=== PATIENT | female | born 1930 | race Caucasian/White ===

== ENCOUNTER 2017-03-01 15:09 | Inpatient (IN) | payer OTHER, MEDICARE ==
[~2017-03-01] VITALS: Ht 147.3 cm; Wt 42.9 kg
[~2017-03-01 15:09] MED LIST: ALPRAZOLAM1 MG PO; CIPRO500 MG PO; DARVOCET-N 1001 EAC1 PO; GABAPENTIN100 MG PO; LIPITOR; LORAZEPAM; MIRTAZAPINE15 MG PO; SENNA8.6 MG PO; TRAZODONE; VALTREX1000 MG PO; XANAX
[2017-03-01 16:31] LABS: EOSINOPHIL (%) 0.2 % (0-5); HEMATOCRIT 34.8 % (36.0-46.0); IMMATURE GRANULOCYTE (%) 1.6 % (0.0-0.7); IMMATURE GRANULOCYTE COUNT 0.2 K/uL; LYMPHOCYTE COUNT 1.3 K/uL (1.0-2.8); MCH 29.2 PG (29.0-34.0); MCHC 30.7 G/DL (30.0-36.0); MCV 95.1 FL (83-99); MONOCYTE (%) 5.6 % (3-12); MONOCYTE COUNT 0.7 K/uL (0-0.8); NEUTROPHIL (%) 81.8 % (45-76); RBC DIS.WIDTH-CV 16.9 % (11.8-14.6); RBC DIS.WIDTH-SD 58.6 % (39-53); RED BLOOD COUNT 3.66 M/uL (3.80-5.20); WHITE BLOOD COUNT 12.2 K/uL (4.1-10.2)
[2017-03-01 16:51] LABS: ADD MIUA? YES; BILIRUBIN NEGATIVE; BLOOD NEGATIVE; COLOR YELLOW ((YELLOW)); GLUCOSE (STRIP) NEGATIVE; KETONES 20; LEUKOCYTES NEGATIVE; NITRITE NEGATIVE; PROTEIN (STRIP) 30; SPECIFIC GRAVITY 1.024 (1.000-1.030)
[2017-03-01 16:58] LABS: BACTERIA RARE /HPF; EPITHELIAL CELLS RARE /HPF; HYALINE CASTS 0-5 /LPF; MUCUS TRACE /LPF; RED BLOOD CELLS NONE SEEN /HPF (0-5); UCUL ADDED? NO; WHITE BLOOD CELLS 0-5 /HPF (0-5)
[2017-03-01 17:17] LABS: INTER. NORMALIZED RATIO 1.1; PROTHROMBIN TIME 11.7 (9.2-11.2); PTT 27.1 (25-32)
[2017-03-01 17:19] LABS: PLATELET CLUMPS PRESENT - PLATELET COUNT APPEARS ADQ.; PLATELET COUNT UNABLE TO REPORT K/uL (156-360)
[2017-03-01 17:21] LABS: CHLORIDE 123 mEq/L (99-109); POTASSIUM 3.6 mEq/L (3.7-5.4)
[2017-03-01 17:22] LABS: MAGNESIUM 2.5 mg/dL (1.3-2.7)
[2017-03-01 17:23] LABS: GLUCOSE 83 mg/dL (70-99)
[2017-03-01 17:24] LABS: ANION GAP 15 MEQ/L (2-14)
[2017-03-01 17:27] LABS: GFR ESTIMATE (CALCULATED) > 59 mL/min/
[2017-03-01 17:28] LABS: SODIUM 161 mEq/L (136-147); UREA NITROGEN (BUN) 30 mg/dL (9-23)
[2017-03-01 17:29] LABS: CREATINE KINASE 70 IU/L (1-294)
[2017-03-01 17:31] LABS: TROP-I INTERPRETATION NEGATIVE; TROPONIN-I < 0.01 ng/mL (0.0-0.30)
[2017-03-01] MEDS ORDERED: LATANOPROST2.5 ML BOTH EYES (18:07)
[2017-03-01] MEDS ORDERED: ALPRAZOLAM0.5 MG PO (18:07)
[2017-03-01 21:45] LABS: CHLORIDE 124 mEq/L (99-109); POTASSIUM 3.3 mEq/L (3.7-5.4); SODIUM 160 mEq/L (136-147)
[2017-03-01 21:46] LABS: GLUCOSE 78 mg/dL (70-99)
[2017-03-01 21:48] LABS: ANION GAP 13 MEQ/L (2-14)
[2017-03-01 21:50] LABS: GFR ESTIMATE (CALCULATED) > 59 mL/min/
[2017-03-01 21:51] LABS: UREA NITROGEN (BUN) 28 mg/dL (9-23)
[2017-03-02 01:52] VITALS: BP 138/65
[2017-03-02 03:08] LABS: HEMATOCRIT 34.2 % (36.0-46.0); MCH 28.9 PG (29.0-34.0); MCHC 30.1 G/DL (30.0-36.0); MCV 95.8 FL (83-99); RBC DIS.WIDTH-CV 16.9 % (11.8-14.6); RBC DIS.WIDTH-SD 59.4 % (39-53); RED BLOOD COUNT 3.57 M/uL (3.80-5.20); WHITE BLOOD COUNT 11.5 K/uL (4.1-10.2)
[2017-03-02 03:11] LABS: PLATELET COUNT 414 K/uL (156-360)
[2017-03-02 03:23] LABS: CHLORIDE 126 mEq/L (99-109); POTASSIUM 3.6 mEq/L (3.7-5.4); SODIUM 160 mEq/L (136-147)
[2017-03-02 03:25] LABS: GLUCOSE 78 mg/dL (70-99)
[2017-03-02 03:27] LABS: ANION GAP 13 MEQ/L (2-14)
[2017-03-02 03:29] LABS: GFR ESTIMATE (CALCULATED) > 59 mL/min/
[2017-03-02 03:30] LABS: UREA NITROGEN (BUN) 27 mg/dL (9-23)
[2017-03-02 04:25] VITALS: BP 115/56
[2017-03-02 07:39] VITALS: BP 116/79
[2017-03-02 08:57] LABS: ANION GAP 10 MEQ/L (2-14); CHLORIDE 124 MEQ/L (99-109); GFR ESTIMATE (CALCULATED) > 59 mL/min/; GLUCOSE 86 mg/dL (70-99); POTASSIUM 3.3 MEQ/L (3.7-5.4); SAMPLE HEMOLYSIS CHECK 0; SAMPLE ICTERIC CHECK 0; SAMPLE LIPEMIA CHECK 0; SODIUM 158 MEQ/L (136-147); UREA NITROGEN (BUN) 25 mg/dL (9-23)
[2017-03-02 11:17] VITALS: BP 109/53
[2017-03-02 15:36] VITALS: BP 112/59
[2017-03-02 19:00] VITALS: BP 109/55
[2017-03-03] VITALS (7 sets, daily range): BP systolic 94–149; BP diastolic 47–60
[2017-03-03 09:39] LABS: POTASSIUM 3.1 mEq/L (3.7-5.4)
[2017-03-03 09:42] LABS: ANION GAP 7 MEQ/L (2-14)
[2017-03-03 09:45] LABS: GFR ESTIMATE (CALCULATED) > 59 mL/min/; GLUCOSE 114 mg/dL (70-99); SODIUM 142 mEq/L (136-147)
[2017-03-03 09:46] LABS: CHLORIDE 110 mEq/L (99-109); UREA NITROGEN (BUN) 18 mg/dL (9-23)
[2017-03-04 04:49] VITALS: BP 95/53
[2017-03-04 06:36] LABS: ANION GAP 6 MEQ/L (2-14); CHLORIDE 119 MEQ/L (99-109); GFR ESTIMATE (CALCULATED) > 59 mL/min/; GLUCOSE 93 mg/dL (70-99); SAMPLE HEMOLYSIS CHECK 0; SAMPLE ICTERIC CHECK 0; SAMPLE LIPEMIA CHECK 0; SODIUM 145 MEQ/L (136-147); UREA NITROGEN (BUN) 14 mg/dL (9-23)
[2017-03-04 06:37] LABS: POTASSIUM 3.8 MEQ/L (3.7-5.4)
[2017-03-04 07:35] VITALS: BP 102/55
[2017-03-04 11:31] VITALS: BP 114/58
[2017-03-04 15:32] VITALS: BP 136/72
[2017-03-04 20:49] VITALS: BP 123/59
[2017-03-04 22:49] LABS: C DIFF TOXIN POSITIVE (NEGATIVE)
[2017-03-04 22:51] LABS: PROBE CHECK PASS
[2017-03-05 00:10] VITALS: BP 127/63
[2017-03-05 03:07] VITALS: BP 113/57
[2017-03-05 07:47] VITALS: BP 107/58
[2017-03-05 08:06] LABS: ANION GAP 9 MEQ/L (2-14); CHLORIDE 116 MEQ/L (99-109); GFR ESTIMATE (CALCULATED) > 59 mL/min/; GLUCOSE 80 mg/dL (70-99); POTASSIUM 3.7 MEQ/L (3.7-5.4); SAMPLE HEMOLYSIS CHECK 0; SAMPLE ICTERIC CHECK 0; SAMPLE LIPEMIA CHECK 0; SODIUM 148 MEQ/L (136-147); UREA NITROGEN (BUN) 15 mg/dL (9-23)
[2017-03-05 11:37] LABS: HEMATOCRIT 29.2 % (36.0-46.0); MCH 30.3 PG (29.0-34.0); MCHC 32.5 G/DL (30.0-36.0); MEAN PLAT.VOLUME 11.7 uM^3 (9.5-12.4); PLATELET COUNT 337 K/uL (156-360); RBC DIS.WIDTH-CV 16.9 % (11.8-14.6); RBC DIS.WIDTH-SD 57.7 % (39-53); RED BLOOD COUNT 3.14 M/uL (3.80-5.20); WHITE BLOOD COUNT 8.2 K/uL (4.1-10.2)
[2017-03-05 11:49] VITALS: BP 106/56
[2017-03-05 16:54] LABS: CHLORIDE 115 mEq/L (99-109); POTASSIUM 3.6 mEq/L (3.7-5.4); SODIUM 144 mEq/L (136-147)
[2017-03-05 16:57] LABS: ANION GAP 6 MEQ/L (2-14)
[2017-03-05 16:59] LABS: GFR ESTIMATE (CALCULATED) > 59 mL/min/; GLUCOSE 114 mg/dL (70-99)
[2017-03-05 17:01] LABS: UREA NITROGEN (BUN) 15 mg/dL (9-23)
[2017-03-05 17:14] VITALS: BP 126/58
[2017-03-05 23:49] VITALS: BP 122/60
[2017-03-06 06:43] LABS: EOSINOPHIL (%) 0.5 % (0-5); HEMATOCRIT 28.4 % (36.0-46.0); IMMATURE GRANULOCYTE (%) 1.7 % (0.0-0.7); IMMATURE GRANULOCYTE COUNT 0.1 K/uL; INSTRUMENT ABS NEUTROPHIL CT 5.5 K/uL; LYMPHOCYTE COUNT 1.4 K/uL (1.0-2.8); MCH 29.4 PG (29.0-34.0); MCV 91.9 FL (83-99); MEAN PLAT.VOLUME 11.9 uM^3 (9.5-12.4); MONOCYTE (%) 7.1 % (3-12); MONOCYTE COUNT 0.6 K/uL (0-0.8); NEUTROPHIL (%) 71.9 % (45-76); NEUTROPHIL COUNT 5.5 K/uL (1.8-6.4); PLATELET COUNT 302 K/uL (156-360); RBC DIS.WIDTH-CV 16.9 % (11.8-14.6); RBC DIS.WIDTH-SD 56.1 % (39-53); RED BLOOD COUNT 3.09 M/uL (3.80-5.20); WHITE BLOOD COUNT 7.7 K/uL (4.1-10.2)
[2017-03-06 07:35] LABS: ANION GAP 8 MEQ/L (2-14); CHLORIDE 112 MEQ/L (99-109); GFR ESTIMATE (CALCULATED) > 59 mL/min/; SAMPLE HEMOLYSIS CHECK 2; SAMPLE ICTERIC CHECK 0; SAMPLE LIPEMIA CHECK 0; SODIUM 143 MEQ/L (136-147); UREA NITROGEN (BUN) 12 mg/dL (9-23)
[2017-03-06 07:39] LABS: GLUCOSE 76 mg/dL (70-99)
[2017-03-06 12:32] LABS: POINT-OF-CARE METER ID UU14162508
[2017-03-06 16:00] VITALS: BP 143/68
[2017-03-06 18:48] LABS: ADD MIUA? NO; BILIRUBIN NEGATIVE; BLOOD NEGATIVE; COLOR YELLOW ((YELLOW)); GLUCOSE (STRIP) NEGATIVE; KETONES NEGATIVE; LEUKOCYTES NEGATIVE; NITRITE NEGATIVE; PROTEIN (STRIP) NEGATIVE; SPECIFIC GRAVITY 1.012 (1.000-1.030); UCUL ADDED? NO; UROBILINOGEN 0.2 MG/DL (0.2-1.0)
[2017-03-06 23:29] VITALS: BP 144/70
[2017-03-07 08:34] VITALS: BP 138/74
[2017-03-07 15:39] VITALS: BP 128/78
[2017-03-08 00:05] VITALS: BP 130/60
[2017-03-08 08:07] VITALS: BP 132/65
[2017-03-08] MEDS ORDERED: METRONIDAZOLE500 MG PO (10:55)
== END 2017-03-08 13:26 | disposition home health service (06) | DRG 371 ==
LOC: EME 15:09 → 2EAST 20:25 → EDOF 20:25 → 4EAST 20:25 → 2EAST 03-04 18:07
PROVIDERS: Emergency Medicine; Hospitalist; Internal Medicine; Physician Assistant
DX: A04.7 Enterocolitis due to Clostridium difficile (principal); E46 Unspecified protein-calorie malnutrition; E87.0 Hyperosmolality and hypernatremia; T76.01XA Adult neglect or abandonment, suspected, initial encounter; F02.80 Dementia in other diseases classified elsewhere, unspecified severity, without behavioral disturbance, psychotic disturbance, mood disturbance, and anxiety; R64 Cachexia; R13.10 Dysphagia, unspecified; E86.0 Dehydration; Z68.1 Body mass index [BMI] 19.9 or less, adult; R33.9 Retention of urine, unspecified; R32 Unspecified urinary incontinence; N32.3 Diverticulum of bladder; G30.9 Alzheimer's disease, unspecified; I70.90 Unspecified atherosclerosis; E43 Unspecified severe protein-calorie malnutrition
CPT/HCPCS: 70450; 71010; 74177; 80048; 80048 91; 81003; 82550; 82948; 83735; 84300; 84484; 85025; 85027; 85610; 85730; 87040; 87086; 87493; 92610 GN; 93005; 97530 GP; 99281; 99285; J1644; J3480; J7030; J7070; S0028; S0030

== ENCOUNTER 2017-10-23 14:51 | Inpatient (IN) | payer OTHER, MEDICARE ==
[2017-10-23] VITALS (7 sets, daily range): BP systolic 82–87; BP diastolic 30–49
[~2017-10-23] VITALS: Ht 154.9 cm; Wt 58.1 kg
[~2017-10-23 14:51] MED LIST changes: +ALPRAZOLAM0.25 M2 PO; +LATANOPROST2.5 ML BOTH EYES; +METRONIDAZOLE500 MG PO; -MIRTAZAPINE15 MG PO; +MIRTAZAPINE7.5 MG PO; +SENNA PLUS TAB1 EACH PO; -SENNA8.6 MG PO
[2017-10-23 15:53] LABS: HEMOGLOBIN 12.7 G/DL (11.9-15.5); MCH 31.1 PG (29.0-34.0); NRBC (%) 0.2 /100 WBC (0-0); PLATELET COUNT 345 K/uL (156-360); RBC DIS.WIDTH-CV 17.5 % (11.8-14.6); RBC DIS.WIDTH-SD 65.1 % (39-53); RED BLOOD COUNT 4.08 M/uL (3.80-5.20); WHITE BLOOD COUNT 28.6 K/uL (4.1-10.2)
[2017-10-23 16:01] LABS: INTER. NORMALIZED RATIO 1.2
[2017-10-23 16:02] LABS: BASE EXCESS -7.6 mEq/L (-3 to +3); BICARBONATE 21.7 mEq/L (22-26); CARBOXY HGB 2.1 % (0-5); COMMENTS - BLOOD GASES A+C+; DEVICE VENTILATOR; FI02 100 %; MECHANICAL RATE 12 resp/min; METHEMOGLOBIN 1.3 % (0-1.5); MODE AC-12; PCO2 61 mm Hg (35-45); PEEP 5 CM/H20; PO2 174 mm Hg (80-100); SITE RR; TIDAL VOLUME 300 ML; TOTAL RESP RATE 12 resp/min; pH 7.16 (7.35-7.45)
[2017-10-23 16:04] LABS: ALBUMIN 3.5 g/dL (3.2-4.8); CHLORIDE 134 mEq/L (99-109); POTASSIUM 3.3 mEq/L (3.7-5.4); PTT 26.9 SEC (25-37)
[2017-10-23 16:06] LABS: GLUCOSE 210 mg/dL (70-99); TOTAL PROTEIN 7.2 g/dL (6.4-8.3)
[2017-10-23 16:08] LABS: TOTAL BILIRUBIN 0.5 mg/dL (0.0-1.0)
[2017-10-23 16:10] LABS: ALKALINE PHOSPHATASE 143 IU/L (3-129); CREATININE 3.8 mg/dL (0.6-1.3); GFR ESTIMATE (CALCULATED) 12 mL/min/
[2017-10-23 16:11] LABS: AST (GOT) 39 IU/L (2-34)
[2017-10-23 16:13] LABS: ALT (GPT) 98 IU/L (3-49)
[2017-10-23 16:16] LABS: SODIUM 172 mEq/L (136-147); UREA NITROGEN (BUN) 127 mg/dL (9-23)
[2017-10-23 16:18] LABS: TROP-I INTERPRETATION NEGATIVE; TROPONIN-I 0.09 ng/mL (0.0-0.30)
[2017-10-23 16:23] LABS: APPEARANCE CLOUDY ((CLEAR)); BILIRUBIN NEGATIVE; BLOOD NEGATIVE; COLOR AMBER ((YELLOW)); GLUCOSE (STRIP) NEGATIVE; KETONES NEGATIVE; LEUKOCYTES NEGATIVE; NITRITE NEGATIVE; PROTEIN (STRIP) NEGATIVE; SPECIFIC GRAVITY 1.017 (1.000-1.030); UROBILINOGEN 0.2 MG/DL (0.2-1.0)
[2017-10-23 16:51] LABS: ABS NEUTROPHIL COUNT 26.7; ANISOCYTOSIS 1+; BAND NEUTROPHILS 56.5 % (0-8.0); BURR CELLS 1+; EOSINOPHIL ABS CT 0; GIANT PLATELETS 2+; LYMPHOCYTES 2.5 % (15.0-45.0); MACROCYTES 1+; METAMYELOCYTES 2.1 %; MONOCYTES 2.1 % (0-9.0); OVALOCYTES 1+; POIKILOCYTOSIS 1+; SEG.NEUTROPHILS 36.8 % (46.0-76.0); SPHEROCYTES 1+
[2017-10-23 16:57] LABS: MCV 100.5 FL (83-99); PLATELET CLUMPS PRESENT
[2017-10-23 16:57] LABS: EPITHELIAL CELLS 2+ /HPF; RED BLOOD CELLS 0-5 /HPF (0-5); WHITE BLOOD CELLS 0-5 /HPF (0-5)
[2017-10-23 16:58] LABS: BACTERIA 3+ /HPF; MUCUS 2+ /LPF; UCUL ADDED? YES
[2017-10-23] MEDS ORDERED: ARICEPT10 MG PO (17:37)
[2017-10-23] MEDS ORDERED: LEVOTHYROXINE75 MCG PO (17:39)
[2017-10-23] MEDS ORDERED: MIRALAX119 GM PO ×2 (17:39→17:44)
[2017-10-23] MEDS ORDERED: TRAZODONE HCL50 MG PO (17:41)
[2017-10-23] MEDS ORDERED: NYSTATIN60 GM TP (17:42)
[2017-10-23] MEDS ORDERED: TYLENOL REGULA325 MG PO (17:43)
[2017-10-23] MEDS ORDERED: DULCOLAX10 MG PR (17:43)
[2017-10-23] MEDS ORDERED: MILK OF MAGN PO (17:44)
[2017-10-23] MEDS ORDERED: ZOFRAN4 MG PO (17:45)
[2017-10-23 18:40] LABS: BASE EXCESS -9.2 mEq/L (-3 to +3); BICARBONATE 16.1 mEq/L (22-26); CARBOXY HGB 1.3 % (0-5); COMMENTS - BLOOD GASES C+; DEVICE VENT; FI02 100 %; MECHANICAL RATE 18 resp/min; METHEMOGLOBIN 1.6 % (0-1.5); MODE AC; PCO2 32 mm Hg (35-45); PO2 179 mm Hg (80-100); SITE RB; TIDAL VOLUME 400 ML; TOTAL RESP RATE 22 resp/min; pH 7.31 (7.35-7.45)
[2017-10-23 18:41] LABS: PEEP 5 CM/H20
[2017-10-23 23:40] LABS: CHLORIDE 140 mEq/L (99-109); POTASSIUM 3.3 mEq/L (3.7-5.4)
[2017-10-23 23:41] LABS: GLUCOSE 182 mg/dL (70-99)
[2017-10-23 23:49] LABS: CREATININE 3.1 mg/dL (0.6-1.3); GFR ESTIMATE (CALCULATED) 15 mL/min/
[2017-10-24] VITALS (43 sets, daily range): BP systolic 0–128; BP diastolic 0–71
[2017-10-24 00:01] LABS: SODIUM 166 mEq/L (136-147); UREA NITROGEN (BUN) 103 mg/dL (9-23)
[2017-10-24 00:17] LABS: BASE EXCESS -10.5 mEq/L (-3 to +3); BICARBONATE 14.4 mEq/L (22-26); CARBOXY HGB 0.8 % (0-5); METHEMOGLOBIN 1.7 % (0-1.5); PCO2 28 mm Hg (35-45); pH 7.32 (7.35-7.45)
[2017-10-24 00:18] LABS: COMMENTS - BLOOD GASES A+C+; DEVICE VENT; FI02 80 %; MECHANICAL RATE 16 resp/min; MODE AC; PO2 125 mm Hg (80-100); SITE RR; TOTAL RESP RATE 25 resp/min
[2017-10-24 00:19] LABS: PEEP 5 CM/H20; TIDAL VOLUME 400 ML
[2017-10-24 05:15] LABS: BASE EXCESS -9.1 mEq/L (-3 to +3); BICARBONATE 15.5 mEq/L (22-26); COMMENTS - BLOOD GASES C+; DEVICE VENT; FI02 80 %; MECHANICAL RATE 16 resp/min; MODE A/C; PCO2 28 mm Hg (35-45); PEEP 5 CM/H20; PO2 158 mm Hg (80-100); SITE RR; TIDAL VOLUME 400 ML; TOTAL RESP RATE 22 resp/min; pH 7.35 (7.35-7.45)
[2017-10-24 05:17] LABS: CHLORIDE 138 mEq/L (99-109)
[2017-10-24 05:18] LABS: MAGNESIUM 1.6 mg/dL (1.3-2.7)
[2017-10-24 05:19] LABS: GLUCOSE 221 mg/dL (70-99)
[2017-10-24 05:23] LABS: CREATININE 2.9 mg/dL (0.6-1.3); GFR ESTIMATE (CALCULATED) 16 mL/min/; PHOSPHORUS 3.1 mg/dL (2.5-4.9)
[2017-10-24 05:24] LABS: UREA NITROGEN (BUN) 98 mg/dL (9-23)
[2017-10-24 05:39] LABS: HEMATOCRIT 28.1 % (36.0-46.0); MCH 31.1 PG (29.0-34.0); MCHC 30.2 G/DL (30.0-36.0); MCV 102.9 FL (83-99); NRBC (%) 0.1 /100 WBC (0-0); RBC DIS.WIDTH-CV 17.6 % (11.8-14.6); RBC DIS.WIDTH-SD 65.9 % (39-53); WHITE BLOOD COUNT 28.5 K/uL (4.1-10.2)
[2017-10-24 06:09] LABS: SODIUM 162 mEq/L (136-147)
[2017-10-24 06:18] LABS: HEMOGLOBIN 8.5 G/DL (11.9-15.5); RED BLOOD COUNT 2.73 M/uL (3.80-5.20)
[2017-10-24 06:59] LABS: ABS NEUTROPHIL COUNT 26.3; ANISOCYTOSIS 2+; BURR CELLS 2+; EOSINOPHIL ABS CT 0; LYMPHOCYTES 5.2 % (15.0-45.0); METAMYELOCYTES 1.7 %; MONOCYTES 0.9 % (0-9.0); NUCLEATED RBC'S 0.9; OVALOCYTES 2+; PLAT.SUFFICIENCY ADEQUATE; POIKILOCYTOSIS 3+; TEAR DROP CELLS 1+
[2017-10-24 07:00] LABS: PLATELET COUNT 215 K/uL (156-360); SEG.NEUTROPHILS 62.2 % (46.0-76.0)
[2017-10-24 15:34] LABS: ALBUMIN 2.2 G/DL (3.2-4.8); AMYLASE 22 IU/L (1-118); DIRECT BILIRUBIN 0.1 mg/dL (0.0-0.3); TOTAL BILIRUBIN 0.3 MG/DL (0.0-1.0)
[2017-10-24 15:40] LABS: ALKALINE PHOSPHATASE 92 IU/L (3-129); ALT (GPT) 39 IU/L (3-49); AST (GOT) 24 IU/L (2-34); LIPASE 21 U/L (1.0-51.0); TOTAL PROTEIN 4.9 G/DL (6.4-8.3)
[2017-10-24 16:27] LABS: THYROTROPIN (TSH) 0.69 MIU/L (0.4-5.5)
[2017-10-24 16:47] LABS: HIGH-SENS C-REACTIVE PROTEIN > 8.00 MG/DL (0.02-0.20)
[2017-10-25] VITALS (25 sets, daily range): BP systolic 94–125; BP diastolic 46–79
[2017-10-25 00:59] LABS: CHLORIDE 126 mEq/L (99-109); POTASSIUM 2.6 mEq/L (3.7-5.4); SODIUM 156 mEq/L (136-147)
[2017-10-25 01:01] LABS: GLUCOSE 217 mg/dL (70-99)
[2017-10-25 01:04] LABS: CREATININE 2.8 mg/dL (0.6-1.3); GFR ESTIMATE (CALCULATED) 17 mL/min/
[2017-10-25 01:05] LABS: UREA NITROGEN (BUN) 86 mg/dL (9-23)
[2017-10-25 05:27] LABS: BASE EXCESS 2.5 mEq/L (-3 to +3); BICARBONATE 24.8 mEq/L (22-26); CARBOXY HGB 1.5 % (0-5); COMMENTS - BLOOD GASES C+A+; DEVICE VENTILATOR; FI02 30 %; MECHANICAL RATE 16 resp/min; MODE AC; PCO2 29 mm Hg (35-45); PO2 65 mm Hg (80-100); SITE RR; TOTAL RESP RATE 23 resp/min; pH 7.54 (7.35-7.45)
[2017-10-25 05:28] LABS: PEEP 5 CM/H20; TIDAL VOLUME 400 ML
[2017-10-25 06:20] LABS: HEMATOCRIT 31.1 % (36.0-46.0); MCH 30.7 PG (29.0-34.0); MCHC 32.2 G/DL (30.0-36.0); PLATELET COUNT 215 K/uL (156-360); RED BLOOD COUNT 3.26 M/uL (3.80-5.20); WHITE BLOOD COUNT 28.9 K/uL (4.1-10.2)
[2017-10-25 06:21] LABS: MCV 95.4 FL (83-99)
[2017-10-25 06:45] LABS: CHLORIDE 121 MEQ/L (99-109); CREATININE 2.8 MG/DL (0.6-1.3); GFR ESTIMATE (CALCULATED) 17 mL/min/; GLUCOSE 197 mg/dL (70-99); PHOSPHORUS 1.7 mg/dL (2.5-4.9); UREA NITROGEN (BUN) 77 mg/dL (9-23)
[2017-10-25 06:47] LABS: SODIUM 160 MEQ/L (136-147)
[2017-10-25 06:59] LABS: POTASSIUM 3.6 MEQ/L (3.7-5.4)
[2017-10-25 22:38] LABS: C DIFF TOXIN POSITIVE (NEGATIVE)
[2017-10-26] VITALS (25 sets, daily range): BP systolic 93–135; BP diastolic 40–63
[2017-10-26 05:03] LABS: BASE EXCESS -0.1 mEq/L (-3 to +3); BICARBONATE 22.9 mEq/L (22-26); CARBOXY HGB 1.4 % (0-5); METHEMOGLOBIN 1.7 % (0-1.5); PCO2 30 mm Hg (35-45); PO2 69 mm Hg (80-100); SITE RR; pH 7.49 (7.35-7.45)
[2017-10-26 05:04] LABS: COMMENTS - BLOOD GASES C+A+; DEVICE VENTILATOR; FI02 30 %; MECHANICAL RATE 14 resp/min; MODE AC; PEEP 5 CM/H20; TIDAL VOLUME 400 ML; TOTAL RESP RATE 21 resp/min
[2017-10-26 07:23] LABS: CHLORIDE 126 MEQ/L (99-109); CREATININE 2.6 MG/DL (0.6-1.3); GFR ESTIMATE (CALCULATED) 18 mL/min/; MAGNESIUM 1.8 mg/dl (1.3-2.7); PHOSPHORUS 2.1 mg/dL (2.5-4.9); SODIUM 157 MEQ/L (136-147); UREA NITROGEN (BUN) 64 mg/dL (9-23)
[2017-10-26 07:30] LABS: GLUCOSE 120 mg/dL (70-99); POTASSIUM 2.6 MEQ/L (3.7-5.4)
[2017-10-26 08:15] LABS: BASOPHIL (%) 0.1 % (0-1); EOSINOPHIL (%) 0.3 % (0-5); EOSINOPHIL COUNT 0.1 K/uL (0-0.3); HEMATOCRIT 24.5 % (36.0-46.0); IMMATURE GRANULOCYTE (%) 0.8 % (0.0-0.7); LYMPHOCYTE (%) 5.2 % (15-42); LYMPHOCYTE COUNT 0.9 K/uL (1.0-2.8); MCH 30.9 PG (29.0-34.0); MCHC 32.7 G/DL (30.0-36.0); MCV 94.6 FL (83-99); MONOCYTE (%) 1.3 % (3-12); MONOCYTE COUNT 0.2 K/uL (0-0.8); NEUTROPHIL (%) 92.3 % (45-76); NEUTROPHIL COUNT 16.6 K/uL (1.8-6.4); PLATELET COUNT 190 K/uL (156-360); RBC DIS.WIDTH-CV 17.1 % (11.8-14.6); RBC DIS.WIDTH-SD 59.7 % (39-53)
[2017-10-26 08:17] LABS: RED BLOOD COUNT 2.59 M/uL (3.80-5.20)
[2017-10-27] VITALS (25 sets, daily range): BP systolic 82–140; BP diastolic 37–69
[2017-10-27 09:22] LABS: BASOPHIL (%) 0.1 % (0-1); EOSINOPHIL COUNT 0.1 K/uL (0-0.3); HEMATOCRIT 27.6 % (36.0-46.0); HEMOGLOBIN 8.9 G/DL (11.9-15.5); IMMATURE GRANULOCYTE (%) 0.9 % (0.0-0.7); LYMPHOCYTE (%) 7.9 % (15-42); LYMPHOCYTE COUNT 0.9 K/uL (1.0-2.8); MCH 30.6 PG (29.0-34.0); MCHC 32.2 G/DL (30.0-36.0); MCV 94.8 FL (83-99); MONOCYTE (%) 2.2 % (3-12); MONOCYTE COUNT 0.3 K/uL (0-0.8); NEUTROPHIL (%) 87.9 % (45-76); NEUTROPHIL COUNT 10.2 K/uL (1.8-6.4); PLATELET COUNT 200 K/uL (156-360); RBC DIS.WIDTH-CV 16.9 % (11.8-14.6); RED BLOOD COUNT 2.91 M/uL (3.80-5.20); WHITE BLOOD COUNT 11.6 K/uL (4.1-10.2)
[2017-10-27 10:14] LABS: ALBUMIN 1.6 G/DL (3.2-4.8); ALKALINE PHOSPHATASE 112 IU/L (3-129); ALT (GPT) 22 IU/L (3-49); AST (GOT) 17 IU/L (2-34); CHLORIDE 122 MEQ/L (99-109); CREATININE 2.3 MG/DL (0.6-1.3); GFR ESTIMATE (CALCULATED) 21 mL/min/; GLUCOSE 137 mg/dL (70-99); MAGNESIUM 1.6 mg/dl (1.3-2.7); PHOSPHORUS 2.5 mg/dL (2.5-4.9); SODIUM 151 MEQ/L (136-147); UREA NITROGEN (BUN) 47 mg/dL (9-23)
[2017-10-27 10:19] LABS: POTASSIUM 2.3 MEQ/L (3.7-5.4); TOTAL BILIRUBIN 0.2 MG/DL (0.0-1.0); TOTAL PROTEIN 3.8 G/DL (6.4-8.3)
[2017-10-28] VITALS (24 sets, daily range): BP systolic 100–148; BP diastolic 45–94
[2017-10-28 05:24] LABS: BASOPHIL (%) 0 % (0-1); EOSINOPHIL (%) 1.5 % (0-5); EOSINOPHIL COUNT 0.2 K/uL (0-0.3); HEMATOCRIT 28.1 % (36.0-46.0); IMMATURE GRANULOCYTE (%) 0.9 % (0.0-0.7); LYMPHOCYTE (%) 9.6 % (15-42); MCH 30.1 PG (29.0-34.0); MONOCYTE (%) 2.7 % (3-12); MONOCYTE COUNT 0.3 K/uL (0-0.8); NEUTROPHIL (%) 85.3 % (45-76); NEUTROPHIL COUNT 8.8 K/uL (1.8-6.4); PLATELET COUNT 219 K/uL (156-360); RBC DIS.WIDTH-SD 59.1 % (39-53); RED BLOOD COUNT 2.99 M/uL (3.80-5.20); WHITE BLOOD COUNT 10.3 K/uL (4.1-10.2)
[2017-10-28 06:12] LABS: CHLORIDE 123 MEQ/L (99-109); CREATININE 2.1 MG/DL (0.6-1.3); GFR ESTIMATE (CALCULATED) 24 mL/min/; GLUCOSE 108 mg/dL (70-99); MAGNESIUM 1.6 mg/dl (1.3-2.7); PHOSPHORUS 2.3 mg/dL (2.5-4.9); POTASSIUM 2.7 MEQ/L (3.7-5.4); SODIUM 152 MEQ/L (136-147); UREA NITROGEN (BUN) 36 mg/dL (9-23)
[2017-10-29] VITALS (7 sets, daily range): BP systolic 117–130; BP diastolic 56–73
[2017-10-29 09:44] LABS: HEMATOCRIT 22.7 % (36.0-46.0); HEMOGLOBIN 7.4 G/DL (11.9-15.5); MCH 30.5 PG (29.0-34.0); MCHC 32.6 G/DL (30.0-36.0); MCV 93.4 FL (83-99); PLATELET COUNT 213 K/uL (156-360); RBC DIS.WIDTH-CV 16.9 % (11.8-14.6); RED BLOOD COUNT 2.43 M/uL (3.80-5.20); WHITE BLOOD COUNT 10.2 K/uL (4.1-10.2)
[2017-10-29 12:35] LABS: CHLORIDE 122 MEQ/L (99-109); CREATININE 1.7 MG/DL (0.6-1.3); GFR ESTIMATE (CALCULATED) 30 mL/min/; GLUCOSE 98 mg/dL (70-99); SODIUM 146 MEQ/L (136-147); UREA NITROGEN (BUN) 23 mg/dL (9-23)
[2017-10-30] VITALS (7 sets, daily range): BP systolic 122–142; BP diastolic 60–80
[2017-10-30 06:44] LABS: CHLORIDE 125 MEQ/L (99-109); CREATININE 1.7 MG/DL (0.6-1.3); GFR ESTIMATE (CALCULATED) 30 mL/min/; GLUCOSE 111 mg/dL (70-99); SODIUM 149 MEQ/L (136-147); UREA NITROGEN (BUN) 19 mg/dL (9-23)
[2017-10-30 06:45] LABS: MAGNESIUM 1.5 mg/dl (1.3-2.7)
[2017-10-30 06:53] LABS: POTASSIUM 3.8 MEQ/L (3.7-5.4)
[2017-10-30 07:15] LABS: HEMATOCRIT 22.9 % (36.0-46.0); HEMOGLOBIN 7.6 G/DL (11.9-15.5); MCHC 33.2 G/DL (30.0-36.0); MCV 93.5 FL (83-99); NRBC (%) 0.3 /100 WBC (0-0); PLATELET COUNT 237 K/uL (156-360); RBC DIS.WIDTH-CV 17.1 % (11.8-14.6); RBC DIS.WIDTH-SD 58.2 % (39-53); RED BLOOD COUNT 2.45 M/uL (3.80-5.20); WHITE BLOOD COUNT 10.8 K/uL (4.1-10.2)
[2017-10-30 11:21] LABS: ALBUMIN 1.6 G/DL (3.2-4.8); ALKALINE PHOSPHATASE 103 IU/L (3-129); ALT (GPT) 17 IU/L (3-49); AST (GOT) 21 IU/L (2-34); TOTAL BILIRUBIN 0.2 MG/DL (0.0-1.0); TOTAL PROTEIN 3.6 G/DL (6.4-8.3)
[2017-10-31 04:00] VITALS: BP 133/64
[2017-10-31 06:53] LABS: HEMATOCRIT 21.4 % (36.0-46.0); MCH 29.7 PG (29.0-34.0); MCHC 32.2 G/DL (30.0-36.0); MCV 92.2 FL (83-99); NRBC (%) 0.2 /100 WBC (0-0); RBC DIS.WIDTH-CV 17.2 % (11.8-14.6); RED BLOOD COUNT 2.32 M/uL (3.80-5.20); WHITE BLOOD COUNT 10.9 K/uL (4.1-10.2)
[2017-10-31 06:58] LABS: HEMOGLOBIN 6.9 G/DL (11.9-15.5); PLATELET COUNT 309 K/uL (156-360)
[2017-10-31 07:06] LABS: ALBUMIN 1.6 G/DL (3.2-4.8); ALKALINE PHOSPHATASE 93 IU/L (3-129); ALT (GPT) 15 IU/L (3-49); AST (GOT) 17 IU/L (2-34); CHLORIDE 123 MEQ/L (99-109); CREATININE 1.6 MG/DL (0.6-1.3); GFR ESTIMATE (CALCULATED) 32 mL/min/; GLUCOSE 112 mg/dL (70-99); SODIUM 149 MEQ/L (136-147); TOTAL BILIRUBIN 0.2 MG/DL (0.0-1.0); TOTAL PROTEIN 3.7 G/DL (6.4-8.3); UREA NITROGEN (BUN) 18 mg/dL (9-23)
[2017-10-31 07:29] VITALS: BP 134/71
[2017-10-31 08:27] LABS: BASOPHIL (%) 0.2 % (0-1); EOSINOPHIL (%) 1.6 % (0-5); EOSINOPHIL COUNT 0.2 K/uL (0-0.3); IMMATURE GRANULOCYTE (%) 4.4 % (0.0-0.7); LYMPHOCYTE (%) 10.4 % (15-42); LYMPHOCYTE COUNT 1.1 K/uL (1.0-2.8); MONOCYTE (%) 3.9 % (3-12); MONOCYTE COUNT 0.4 K/uL (0-0.8); NEUTROPHIL (%) 79.5 % (45-76); NEUTROPHIL COUNT 8.7 K/uL (1.8-6.4)
[2017-10-31 11:57] VITALS: BP 131/78
[2017-10-31 16:12] VITALS: BP 114/62
[2017-10-31 19:38] VITALS: BP 137/61
[2017-11-01 00:01] VITALS: BP 125/60
[2017-11-01 04:04] VITALS: BP 138/59
[2017-11-01 07:00] VITALS: BP 121/60
[2017-11-01 11:07] VITALS: BP 113/66
[2017-11-01] MEDS ORDERED: VANCOCIN HCL125 MG PO (13:52)
[2017-11-01 15:12] VITALS: BP 109/64
== END 2017-11-01 16:20 | DRG 871 ==
LOC: EME 14:51 → 4WEST 17:03 → 4EAST 17:03 → EDOF 17:03 → ENRESERV 17:06 → 4WEST 21:13 → ENRESERV 10-29 00:55 → 4WEST 10-29 01:05 → ENRESERV 10-29 01:39 → 4EAST 10-29 02:48 → ENRESERV 10-30 19:58 → 5SOUTH 10-30 22:25
PROVIDERS: Emergency Medicine; Family Medicine; Hospitalist; Internal Medicine; Internal Medicine Critical Care Medicine; Internal Medicine Nephrology; Surgery
PROC: 0BH17EZ Insertion of Endotracheal Airway into Trachea, Via Natural or Artificial Opening (ICD-10-PCS; principal; 2017-10-23)
PROC: 5A1945Z Respiratory Ventilation, 24-96 Consecutive Hours (ICD-10-PCS; principal; 2017-10-23)
PROC: 05HQ33Z Insertion of Infusion Device into Left External Jugular Vein, Percutaneous Approach (ICD-10-PCS; principal; 2017-10-23)
PROC: 05HM33Z Insertion of Infusion Device into Right Internal Jugular Vein, Percutaneous Approach (ICD-10-PCS; 2017-10-30)
DX: A41.9 Sepsis, unspecified organism (principal); J18.9 Pneumonia, unspecified organism; A04.72 Enterocolitis due to Clostridium difficile, not specified as recurrent; R64 Cachexia; R62.7 Adult failure to thrive; J96.01 Acute respiratory failure with hypoxia; J90 Pleural effusion, not elsewhere classified; F03.90 Unspecified dementia, unspecified severity, without behavioral disturbance, psychotic disturbance, mood disturbance, and anxiety; E87.2 Acidosis; K44.9 Diaphragmatic hernia without obstruction or gangrene; F32.9 Major depressive disorder, single episode, unspecified; F41.9 Anxiety disorder, unspecified; E78.5 Hyperlipidemia, unspecified; E03.9 Hypothyroidism, unspecified; S31.000A Unspecified open wound of lower back and pelvis without penetration into retroperitoneum, initial encounter; E87.0 Hyperosmolality and hypernatremia; Z51.5 Encounter for palliative care; R65.21 Severe sepsis with septic shock; K76.0 Fatty (change of) liver, not elsewhere classified; E86.0 Dehydration; W05.0XXA Fall from non-moving wheelchair, initial encounter; E46 Unspecified protein-calorie malnutrition; N17.0 Acute kidney failure with tubular necrosis; D63.8 Anemia in other chronic diseases classified elsewhere; E87.6 Hypokalemia; E86.1 Hypovolemia; E83.51 Hypocalcemia; Z66 Do not resuscitate; Z86.19 Personal history of other infectious and parasitic diseases; Z90.710 Acquired absence of both cervix and uterus; Z88.0 Allergy status to penicillin
CPT/HCPCS: 36600; 71045; 76705; 80048; 80048 91; 80053; 80076; 81003; 82150; 82330; 82533 91; 82803; 82948; 83605; 83690; 83735; 84100; 84145 90; 84443; 84484; 85025; 85027; 85610; 85730; 86141; 87040; 87070; 87077; 87086 GA; 87147; 87186; 87205; 87493; 87641; 87801; 92610 GN; 94002; 94003; 94799; 99281; 99285; C1751; C1753; J0610; J0692; J0696; J1644; J1815; J1940; J2250; J3010; J3370; J3475; J3480; J7030; J7040; J7050; J7070; S0030